=== PATIENT | male | born 1980 | race Caucasian/White ===

== ENCOUNTER 2025-06-30 06:16 | Day surgery (SDC) | payer OTHER ==
[2025-06-30] MEDS: Lactated Ringers 1,000 ML IV SCH (06:25)
[2025-06-30 06:47] VITALS: RESP 18
[2025-06-30] MEDS ORDERED: propofoL IV ONE (07:38)
[2025-06-30] MEDS ORDERED: Xylocaine-Mpf 2% 5 Ml Vial ONE (07:38)
[2025-06-30] MEDS ORDERED: Versed 2 MG/2 ML Injection ONE (07:38)
[2025-06-30 08:32] VITALS: O2SAT 98
[2025-06-30 08:45] VITALS: BP 128/92; PULSE 80; TEMP 96.7
--- NOTE | 2025-07-01 09:20 | OP ---
SURGERY DATE/TIME: 06/30/2025 [id number] PREOPERATIVE DIAGNOSIS: Screening colonoscopy. POSTOPERATIVE DIAGNOSIS: Rectal polyp x1. PROCEDURE: Colonoscopy. SURGEON: Austin Torres MD ANESTHESIA: MAC by Tyrese Gonzáles CRNA ESTIMATED BLOOD LOSS: Minimal. SPECIMEN: Cold forceps polypectomy from the rectum. DESCRIPTION OF PROCEDURE AND FINDINGS: After informed written consent was obtained, the patient was taken to the endoscopy suite. He was placed in the left lateral decubitus position and anesthesia was titrated to desired level of consciousness. Digital rectal exam showed normal sphincter tone and no internal lesions. The scope was inserted into the rectum and sequentially the entire colonic mucosa was traversed. Level of the cecum was reached and verified with direct visualization of the ileocecal valve. Upon withdrawal, careful mucosal inspection revealed no gross abnormalities. Prep was noted to be fair. Prior to withdrawal, retroflexion showed a small sessile polyp in the distal rectum, which was grasped with a forceps and removed in its entirety with minimal bleeding. It was collected and sent for pathology. The scope was removed and the patient was transferred to the recovery room in good condition. He has been advised to follow up in 1 week for pathology report.
== END 2025-06-30 08:54 | disposition home or self-care (01) ==
LOC: SDC 06:16
PROVIDERS: ATTEND Family Medicine
DX: Z12.11 Encounter for screening for malignant neoplasm of colon (principal); K62.1 Rectal polyp